=== PATIENT | male | born 1960 | race Caucasian/White ===

== ENCOUNTER 2018-04-02 14:50 | Emergency (ER) | payer OTHER ==
[2018-04-02 15:36] LABS: ADD MAN DIFF? NO
[2018-04-02 15:37] LABS: WHITE BLOOD COUNT 6.9 10^3/ul (4.8-10.8)
[2018-04-02 15:37] LABS: BASOPHIL # 0.1 10^3/ul (0.0-0.1); BASOPHILS % 0.9 % (0.0-2.0); EOSINOPHILS % 0.1 % (0.0-7.0); HEMATOCRIT 40.6 % (42.0-52.0); HEMOGLOBIN 13.6 g/dl (14.0-18.0); LYMPHOCYTES % 14.9 % (15.0-51.0); MEAN CORPUSCULAR HEMOGLOBIN 27.4 pg (29.0-33.0); MEAN CORPUSCULAR HGB CONC 33.5 g/dl (32.0-37.0); MEAN CORPUSCULAR VOLUME 81.7 fl (82.0-101.0); MEAN PLATELET VOLUME 10.6 fl (7.4-10.4); MONOCYTES % 14.2 % (0.0-11.0); NEUTROPHIL # 4.8 10^3/ul (1.6-7.5); NEUTROPHILS % 69.6 % (39.0-77.0); PLATELET COUNT 180 10^3/UL (140-415); RED BLOOD COUNT 4.97 10^6/ul (4.70-6.10); RED CELL DISTRIBUTION WIDTH 14.1 % (11.5-14.5)
[2018-04-02] MEDS: ONDANSETRON 4 MG INJ IV (15:37)
[2018-04-02] MEDS: morphine 4 MG/ML VIAL IV (15:38)
[2018-04-02 15:55] LABS: ALANINE AMINOTRANSFERASE 31 IU/L (13-69); ALBUMIN 4.8 g/dl (3.3-4.9); ALBUMIN/GLOBULIN RATIO 1.11; ALKALINE PHOSPHATASE 75 IU/L (42-121); ANION GAP 20 (8-16); ASPARTATE AMINO TRANSFERASE 45 IU/L (15-46); BLOOD UREA NITROGEN 11 mg/dl (7-20); CALCIUM 9.4 mg/dl (8.4-10.2); CARBON DIOXIDE 28 mmol/L (21-31); CHLORIDE 90 mmol/L (97-110); CREATININE 0.96 mg/dl (0.61-1.24); GLUCOSE 133 mg/dl (70-220); LIPASE 177 U/L (23-300); POTASSIUM 3.8 mmol/L (3.5-5.1); SODIUM 134 mmol/L (135-144); TOTAL PROTEIN 9.1 g/dl (6.1-8.1)
[2018-04-02 16:13] LABS: TROPONIN-I < 0.012 ng/ml (0.000-0.120)
== END 2018-04-02 18:17 | disposition home or self-care (01) ==
LOC: E/R 14:50
DX: R10.13 Epigastric pain (principal); R11.0 Nausea
CPT/HCPCS: 36415; 76705; 80053; 83690; 84484; 85025; 93005; 96374; 96375; 99285-25

== ENCOUNTER 2018-05-30 05:54 | Emergency (ER) | payer OTHER ==
[2018-05-30] MEDS: ONDANSETRON (ODT) 4 MG TAB ODT ×2 (07:10→08:33)
[2018-05-30] MEDS: NICARDipine HCL 30 MG CAPSULE PO (07:10)
[2018-05-30] MEDS: LORAZEPAM 1 MG TAB PO (08:33)
[2018-05-30] MEDS: HYDROmorphONE 0.5 MG/0.5 ML SYG IM (08:35)
== END 2018-05-30 12:01 | disposition home or self-care (01) ==
LOC: E/R 05:54
DX: I10 Essential (primary) hypertension (principal); R40.2252 Coma scale, best verbal response, oriented, at arrival to emergency department; R10.12 Left upper quadrant pain; R40.2142 Coma scale, eyes open, spontaneous, at arrival to emergency department; R40.2362 Coma scale, best motor response, obeys commands, at arrival to emergency department
CPT/HCPCS: 70450; 74176; 82962; 93005; 96372; 99285-25

== ENCOUNTER 2018-12-22 05:51 | Day surgery (SDC) | payer OTHER ==
[2018-12-22] MEDS ORDERED: PROPOFOL 200 MG INJ (07:00)
[2018-12-22] MEDS ORDERED: LIDOCAINE 100 MG SYRINGE (07:43)
[2018-12-22] MEDS ORDERED: PROPOFOL 40 ML (07:43)
== END 2018-12-22 10:15 | disposition home or self-care (01) ==
LOC: GIL 05:51
DX: Z12.11 Encounter for screening for malignant neoplasm of colon (principal); K64.8 Other hemorrhoids; K64.4 Residual hemorrhoidal skin tags; K57.30 Diverticulosis of large intestine without perforation or abscess without bleeding
CPT/HCPCS: 45378

== ENCOUNTER 2019-04-27 08:13 | Emergency (ER) | payer OTHER ==
[2019-04-27] MEDS: NICARDipine HCL 30 MG CAPSULE PO (08:42)
[2019-04-27] MEDS: ONDANSETRON (ODT) 4 MG TAB ODT (08:42)
[2019-04-27 08:43] LABS: ADD MAN DIFF? NO; BASOPHILS % 0.8 % (0.0-2.0); HEMATOCRIT 43.8 % (42.0-52.0); HEMOGLOBIN 14.8 g/dl (14.0-18.0); LYMPHOCYTES # 0.9 10^3/ul (0.8-2.9); LYMPHOCYTES % 17.2 % (15.0-51.0); MEAN CORPUSCULAR HEMOGLOBIN 29.4 pg (29.0-33.0); MEAN CORPUSCULAR HGB CONC 33.8 g/dl (32.0-37.0); MEAN CORPUSCULAR VOLUME 87.1 fl (82.0-101.0); MEAN PLATELET VOLUME 10.5 fl (7.4-10.4); MONOCYTE # 0.7 10^3/ul (0.3-0.9); MONOCYTES % 13.9 % (0.0-11.0); NEUTROPHIL # 3.4 10^3/ul (1.6-7.5); NEUTROPHILS % 67.9 % (39.0-77.0); PLATELET COUNT 155 10^3/UL (140-415); RED BLOOD COUNT 5.03 10^6/ul (4.70-6.10); RED CELL DISTRIBUTION WIDTH 13.7 % (11.5-14.5)
[2019-04-27] MEDS: traMADol 50 MG TAB PO (08:43)
[2019-04-27] MEDS: MECLIZINE 12.5 MG TAB PO (08:43)
[2019-04-27 09:02] LABS: INR 1.04; PROTIME 13.7 Sec (11.9-14.9); PT RATIO 1.1
[2019-04-27 09:03] LABS: ANION GAP 13 (5-13); BLOOD UREA NITROGEN 7 mg/dl (7-20); CALCIUM 9.5 mg/dl (8.4-10.2); CARBON DIOXIDE 31 mmol/L (21-31); CHLORIDE 92 mmol/L (97-110); CREATININE 0.76 mg/dl (0.61-1.24); Estimated GFR > 60 mL/min (>60); GLUCOSE 128 mg/dl (70-220); PARTIAL THROMBOPLASTIN TIME 34.3 Sec (23.0-35.0); SODIUM 136 mmol/L (135-144)
[2019-04-27 09:04] LABS: ALANINE AMINOTRANSFERASE 32 IU/L (13-69); ALBUMIN 4.5 g/dl (3.3-4.9); ALKALINE PHOSPHATASE 95 IU/L (42-121); ASPARTATE AMINO TRANSFERASE 49 IU/L (15-46); BILIRUBIN,INDIRECT 0.8 mg/dl (0-1.1); BILIRUBIN,TOTAL 0.8 mg/dl (0.2-1.3); LIPASE 182 U/L (23-300); TOTAL PROTEIN 8.5 g/dl (6.1-8.1)
[2019-04-27 09:15] LABS: TROPONIN-I < 0.012 ng/ml (0.000-0.120)
== END 2019-04-27 11:13 | disposition home or self-care (01) ==
LOC: E/R 08:13
DX: R42 Dizziness and giddiness (principal); I10 Essential (primary) hypertension; R10.13 Epigastric pain; R11.2 Nausea with vomiting, unspecified
CPT/HCPCS: 36415; 70450; 80048; 80076; 83690; 84484; 85025; 85610; 85730; 93005; 99285-25